=== PATIENT | female | born 1965 | race Caucasian/White ===

== ENCOUNTER 2024-01-11 06:40 | Day surgery (SDC) | payer BC ==
[~2024-01-11] VITALS: Ht 172.7 cm; Wt 91.3 kg
[2024-01-11] VITALS (7 sets, daily range): BP systolic 93–126; BP diastolic 59–72; PULSE 99–109; RESP 15–18; TEMP 97.9; O2SAT 94–97
[2024-01-11] MEDS ORDERED: cefazolin 2gm/D5W 100mL 100 ML IV ONE (07:05)
[2024-01-11] MEDS: normal saline 1000ml 1,000 ML IV SCH (07:29)
[2024-01-11] MEDS: vancomycin 1,500 MG in NS 300ml IV soln IV ONE (07:29)
[2024-01-11 07:48] LABS: EOSINOPHILS # (AUTO) 0.2 X10'3 (0-0.9); MEAN CORPUSCULAR HEMOGLOBIN 29.5 PG (27.0-31.0); MONOCYTES # (AUTO) 0.7 X10'3 (0-0.9)
[2024-01-11 07:50] LABS: BASOPHILS % (AUTO) 0.4 % (0-1); EOSINOPHILS % (AUTO) 2.8 % (0-6); HEMATOCRIT 49.1 % (35.0-45.0); HEMOGLOBIN 16.8 g/dl (12.0-16.0); LYMPHOCYTES % (AUTO) 27.2 % (21-51); MEAN CORPUSCULAR HGB CONC 34.1 g/dL (33.0-36.5); MEAN CORPUSCULAR VOLUME 86.5 FL (78-98); MEAN PLATELET VOLUME 10.2 FL (7.4-10.4); MONOCYTES % (AUTO) 10.1 % (2-12); NEUTROPHILS # (AUTO) 4.3 X10'3 (1.8-7.7); NEUTROPHILS % (AUTO) 59.5 % (42-75); PLATELET COUNT 244 X10'3 (140-440); RED BLOOD COUNT 5.68 X10'6 (4.20-5.60); WHITE BLOOD COUNT 7.2 X10'3 (4.5-11.0)
[2024-01-11 08:02] LABS: PROTHROMBIN TIME 10.6 SECONDS (9.0-12.0)
[2024-01-11] MEDS ORDERED: Prevagen PO (08:03)
[2024-01-11] MEDS ORDERED: OMEG10006 PO (08:03)
[2024-01-11] MEDS ORDERED: [UNRECOGNIZED DRUG - CODE] PO (08:03)
[2024-01-11] MEDS ORDERED: SACU1TAB PO (08:03)
[2024-01-11] MEDS ORDERED: EMPA10TA PO (08:03)
[2024-01-11] MEDS ORDERED: METO-395 PO (08:03)
[2024-01-11 08:04] LABS: ALBUMIN 3.7 G/DL (3.4-5.0); ANION GAP 14 (8-16); BLOOD UREA NITROGEN 17 MG/DL (7-18); BUN/CREATININE RATIO 23.6 (10.0-20.0); CALCIUM 8.6 MG/DL (8.5-10.1); CHLORIDE 104 MMOL/L (99-107); CREATININE 0.72 MG/DL (0.40-0.90); GLUCOSE 120 MG/DL (70-104); POTASSIUM 4.1 MMOL/L (3.5-5.1); SODIUM 140 MMOL/L (135-145); TOTAL CARBON DIOXIDE 22.3 MMOL/L (24-32); eCRCL 84 ML/MIN; eGFR 83 ML/MIN
[2024-01-11] MEDS ORDERED: vancomycin 1,000mg inj ONE (08:07)
[2024-01-11] MEDS ORDERED: fentaNYL/PF 50MCG/1 ML 2ML syringe ONE (08:07)
[2024-01-11] MEDS ORDERED: midazolam 1 mg/ML 2ml injection ONE ×2 (08:07→11:20)
[2024-01-11] MEDS ORDERED: iohexol 350 MG/ML 50ML vial IV ONE ×2 (08:07→11:20)
[2024-01-11] MEDS ORDERED: LIDOcaine 1% w/EPI 1:100,000 inj. MDV 50 ML VIAL ONE (08:07)
[2024-01-11] MEDS ORDERED: diphenhydrAMINE 50 mg/ml inj ONE (09:29)
[2024-01-11] MEDS ORDERED: FLU VACC QS2023-24(6MOS UP)/PF 60 MCG/0.5 ML SYRINGE IM ONE (16:00)
== END 2024-01-11 14:07 | disposition home or self-care (01) ==
LOC: CATH LAB 06:40
PROVIDERS: ATTEND Internal Medicine Cardiovascular Disease
DX: I42.0 Dilated cardiomyopathy (principal); I44.7 Left bundle-branch block, unspecified; I50.22 Chronic systolic (congestive) heart failure; I42.8 Other cardiomyopathies; Z98.890 Other specified postprocedural states; Z79.899 Other long term (current) drug therapy; Z88.5 Allergy status to narcotic agent; Z23 Encounter for immunization; Z82.49 Family history of ischemic heart disease and other diseases of the circulatory system
CPT/HCPCS: 33225; 33249; 36415; 71045; 80048; 83735; 85025; 85610; 90471; 90686; 93005; 99152; 99153; C1769; C1777; C1882; C1898; C1900; J0690; J1200; J2250; J3010; J3370; J3490; J7030; Q9967; 33217; A4565; A6258; C1895